=== PATIENT | male | born 1970 | race Caucasian/White ===

== ENCOUNTER 2017-10-31 17:44 | Emergency (ER) | payer BC ==
[~2017-10-31] VITALS: Ht 175.3 cm; Wt 83.9 kg
[2017-10-31] MEDS ORDERED: LACTATED RINGERS 1,000 ML IV ONE (18:37)
[2017-10-31 18:43] LABS: BILIRUBIN,URINE NEGATIVE (NEGATIVE); CLARITY,URINE CLEAR; COLOR,URINE YELLOW; GLUCOSE, URINE (UA) NEGATIVE (NEGATIVE); KETONES,URINE NEGATIVE (NEGATIVE); LEUKOCYTE ESTERASE ,URINE 1+ (NEGATIVE); NITRITE,URINE NEGATIVE (NEGATIVE); PH,URINE 6 (5-9); PROTEIN,URINE 1+ (NEGATIVE); UROBILINOGEN,URINE 1 MG/DL (NORMAL)
[2017-10-31] MEDS ORDERED: NS 250 ML (IVPB) BAG IV ONE (18:45)
[2017-10-31] MEDS ORDERED: PIPERACILLIN/TAZOBACTAM 3.375 GM in NS (IVPB) 100 ML IV ONE (18:45)
[2017-10-31] MEDS ORDERED: IOHEXOL 350 MG/ML 100 ML (OMNIPAQUE 350) VIAL IV ONE (18:45)
[2017-10-31] MEDS ORDERED: CATHETER FLUSH 10 ML SYR IV PRN (18:45)
--- NOTE | 2017-10-31 18:46 | ED GU-Male ---
General Chief Complaint: Abdominal/GI Problems Stated Complaint: POSS HERNIA Source: patient, RN/MD (Dr. Hernandez) Exam Limitations: no limitations History of Present Illness Date Seen by Provider: Oct 31, 2017 Time Seen by Provider: 18:34 Initial Comments The patient presents to the ER by private conveyance with a chief complaint he is proximally 5 days ago on Saturday started feeling some swelling and pain in his left groin and testicle while working on a fence and putting some boards up. He says he felt when he bent over and was screaming and some screws came on acutely and suddenly. Says it felt like somebody pinched his testicle. He says it kind of waxed and waned over the next day or so and then started to swell. He took some Aleve for with his last dose of Aleve being in Saturday or Saturday. He says he then went to the primary care doctor's office Dr. Hernandez today to have it looked at and he says that today he felt like he had a subjective fever. Dr. Hernandez tried multiple times to reduce it and could not get it to reduce a cold and sent the patient to the ER. Excellent spoke with Dr. Lama gave report to this interviewer. Patient reports that his pain right now while he rests and is not manipulated is about a 2 out of 10. It's very painful to touch. He's had no dysuria, discharge, diarrhea, constipation or painful bowel movements. His last bowel movement was earlier today normal. He's had no nausea or vomiting. No cough or shortness of breath. He's had no history of surgeries on his abdomen or elsewhere. No other trauma. Allergies and Home Medications Allergies Coded Allergies: Sulfa (Sulfonamide Antibiotics) (Verified Allergy, Intermediate, 10/31/17) Patient Home Medication List Home Medication List Reviewed: Yes Review of Systems Constitutional: chills; No diaphoresis; fever; No malaise EENTM: No ear discharge, No ear pain Respiratory: No cough, No phlegm, No short of breath Cardiovascular: No chest pain, No edema Gastrointestinal: No abdominal pain, No constipation, No diarrhea, No nausea Genitourinary: denies burning, denies discharge, denies dysuria; pain (left scrotum mass) Musculoskeletal: No back pain, No joint pain Skin: No pruritus, No rash Past Ufianvy-Kvoaem-Jwebhh Hx Patient Social History Alcohol Use: Denies Use Recreational Drug Use: No Smoking Status: Never a Smoker Past Medical History Reproductive Disorders: No Sexually Transmitted Disease: No HIV/AIDS: No Adverse Reaction/Blood Tranf: No Family Medical History No Pertinent Family Hx Physical Exam Vital Signs Vital Signs - First Documented 10/31/17 18:22 Temp 99.3 Pulse 111 Resp 20 B/P (MAP) 155/88 (110) Pulse Ox 99 O2 Delivery Room Air Capillary Refill : General Appearance: WD/WN, mild distress HEENT: PERRL/EOMI, pharynx normal Neck: non-tender, normal inspection Cardiovascular: normal peripheral pulses, regular rate, rhythm Respiratory: no respiratory distress, no accessory muscle use Gastrointestinal: normal bowel sounds, non tender, soft Male: other (left nonreducible large firm scrotal mass that is very tender to manipulation.) Back: normal inspection, no vertebral tenderness Extremities: normal inspection, no pedal edema, normal capillary refill 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: alert, oriented x 3 Focused Exam Lactate Level 10/31/17 18:45: Lactic Acid Level 1.51 Lactic Acid Level Laboratory Tests Test 10/31/17 18:45 Lactic Acid Level 1.51 MMOL/L (0.50-2.00) Progress/Results/Core Measures Suspected Sepsis SIRS Temperature: Pulse: Respiratory Rate: Laboratory Tests 10/31/17 18:45: White Blood Count 8.5 Blood Pressure / Mean: 10/31/17 18:45: Lactic Acid Level 1.51 Laboratory Tests 10/31/17 18:45: Creatinine 0.91, INR Comment 1.0, Platelet Count 217, Total Bilirubin 1.4H Results/Orders Lab Results Laboratory Tests Test 10/31/17 18:35 10/31/17 18:45 Range/Units Urine Color YELLOW Urine Clarity CLEAR Urine pH 6 5-9 Urine Specific [place] 1.025 H 1.016-1.022 Urine Protein 1+ H NEGATIVE Urine Glucose (UA) NEGATIVE NEGATIVE Urine Ketones NEGATIVE NEGATIVE Urine Nitrite NEGATIVE NEGATIVE Urine Bilirubin NEGATIVE NEGATIVE Urine Urobilinogen 1 NORMAL MG/DL Urine Leukocyte Esterase 1+ H NEGATIVE Urine RBC (Auto) 2+ H NEGATIVE Urine RBC 2-5 H /HPF Urine WBC 0-2 /HPF Urine Crystals NONE /LPF Urine Bacteria TRACE /HPF Urine Casts NONE /LPF Urine Mucus LARGE H /LPF Urine Culture Indicated NO White Blood Count 8.5 4.3-11.0 10^3/uL Red Blood Count 5.01 4.35-5.85 10^6/uL Hemoglobin 14.9 13.3-17.7 G/DL Hematocrit 41 40-54 % Mean Corpuscular Volume 82 80-99 FL Mean Corpuscular Hemoglobin 30 25-34 PG Mean Corpuscular Hemoglobin Concent 36 32-36 G/DL Red Cell Distribution Width 13.9 10.0-14.5 % Platelet Count 217 130-400 10^3/uL Mean Platelet Volume 9.6 7.4-10.4 FL Neutrophils (%) (Auto) 75 42-75 % Lymphocytes (%) (Auto) 13 12-44 % Monocytes (%) (Auto) 11 0-12 % Eosinophils (%) (Auto) 1 0-10 % Basophils (%) (Auto) 0 0-10 % Neutrophils # (Auto) 6.4 1.8-7.8 X 10^3 Lymphocytes # (Auto) 1.1 1.0-4.0 X 10^3 Monocytes # (Auto) 0.9 0.0-1.0 X 10^3 Eosinophils # (Auto) 0.1 0.0-0.3 10^3/uL Basophils # (Auto) 0.0 0.0-0.1 10^3/uL Prothrombin Time 13.3 12.2-14.7 SEC INR Comment 1.0 0.8-1.4 Activated Partial Thromboplast Time 32 24-35 SEC Sodium Level 138 135-145 MMOL/L Potassium Level 3.5 L 3.6-5.0 MMOL/L Chloride Level 102 98-107 MMOL/L Carbon Dioxide Level 19 L 21-32 MMOL/L Anion Gap 17 H 5-14 MMOL/L Blood Urea Nitrogen 11 7-18 MG/DL Creatinine 0.91 0.60-1.30 MG/DL Estimat Glomerular Filtration Rate > 60 BUN/Creatinine Ratio 12 Glucose Level 110 H 70-105 MG/DL Lactic Acid Level 1.51 0.50-2.00 MMOL/L Calcium Level 9.5 8.5-10.1 MG/DL Total Bilirubin 1.4 H 0.1-1.0 MG/DL Aspartate Amino Transf (AST/SGOT) 24 5-34 U/L Alanine Aminotransferase (ALT/SGPT) 36 0-55 U/L Alkaline Phosphatase 96 40-136 U/L Total Protein 7.5 6.4-8.2 GM/DL Albumin 5.0 H 3.2-4.5 GM/DL My Orders Orders - RAHUL RADFORD Saline Lock/Iv-Start (10/31/17 18:37) Cbc With Automated Diff (10/31/17 18:37) Comprehensive Metabolic Panel (10/31/17 18:37) Lactic Acid Analyzer (10/31/17 18:37) Blood Culture (10/31/17 18:37) Ua Culture If Indicated (10/31/17 18:37) Protime With Inr (10/31/17 18:37) Partial Thromboplastin Time (10/31/17 18:37) Chest 1 View, Ap/Pa Only (10/31/17 18:37) O2 (10/31/17 18:37) Saline Lock/Iv-Start (10/31/17 18:37) Saline Lock/Iv-Start (10/31/17 18:37) Piperacillin/Tazobactam (Zosyn Vial) (10/31/17 18:45) Vital Signs Adult Sepsis Patie Q15M (10/31/17 18:37) Remove Rings In Anticipation O (10/31/17 18:37) Lactated Ringers (Lr 1000 Ml Iv Solution (10/31/17 18:37) Us Scrotum (Testicle) [id number] (10/31/17 18:39) Iohexol Injection (Omnipaque 350 Mg/Ml 1 (10/31/17 18:45) Sodium Chloride Flush (Catheter Flush Sy (10/31/17 18:45) Ns (Ivpb) (Sodium Chloride 0.9%) (10/31/17 18:45) Pharmacy Communication (Pharmacy Communi (10/31/17 18:43) Ceftriaxone Injection (Rocephin Injectio (10/31/17 19:45) Vital Signs/I&O 10/31/17 18:22 Temp 99.3 Pulse 111 Resp 20 B/P (MAP) 155/88 (110) Pulse Ox 99 O2 Delivery Room Air Capillary Refill : Progress Note : Time: 18:44 Progress Note His temperature is 99.3. His heart rate is 111 on arrival. His unreducible left scrotal mass is consistent with possible incarcerated bowel in the hernia versus orchitis versus much less likely tumor given its abrupt onset and painfulness. We'll obtain ultrasound of the mass which will show us what likely is in origin as well as whether there is a good blood supply if it is incarcerated bowel. If it was a testicular torsion to 5 days later it would be a low likelihood for salvaging it. Diagnostic Imaging Diagonstic Imaging: Ultrasound Plain Films/CT/US/NM/MRI: other (scrotum) Reviewed: Reviewed by Me Consults Consults : Consulting Physician: JAKE DODGE DO Consults Notes After examination Dr. Dodge does not feel this is consistent with hernia. Ultrasound shows a cystic mass with possible symptoms and lobulation off the epididymis. He discussed the case with urology, Dr. Michelle who says the patient can go home with a large dose of Rocephin and then some broad-spectrum antibiotics. He recommends NSAIDs ice Tylenol rest. He wants the patient in his clinic Saturday and they have set up an appointment and given this information to the patient. Lab results were reviewed and unremarkable. There is a trace amount of microscopic hematuria but no bacteria or white blood cells. Departure Impression Primary Impression: Scrotal mass Disposition: HOME, SELF-CARE Condition: Improved Departure-Patient Inst. Decision time for Depature: 19:39 Referrals: DAVIN HERNANDEZ DO (PCP) Primary Care Physician Patient Instructions: Hydrocele/Varicocele (DC) Add. Discharge Instructions: Urology recommends you go home and get some rest. No lifting or strenuous activity. Use ice for pain as well as Tylenol 1000 g every 8 hours and ibuprofen 800 mg every 8 hours. If you prefer Aleve instead of ibuprofen you can use 2 tablets twice a day. If you have breakthrough pain gets unbearable you can take one to 2 tablets of the hydrocodone every 6 hours as needed. Hydrocodone will cause constipation and drowsiness. You can use Colace or MiraLAX to combat constipation. Keep your follow-up appointment on Saturday with Dr. Michelle urology. 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 All discharge instructions reviewed with patient and/or family. Voiced understanding. Scripts Ondansetron (Ondansetron Odt) 4 Mg Tab.rapdis 4 MG PO Q6H PRN for NAUSEA/VOMITING, #8 TAB 0 Refills Prov: RAHUL RADFORD 10/31/17 Hydrocodone Bit/Acetaminophen (Hydrocodone/Acetaminophen 5/325mg Tablet) 1 Tab Tab 1-2 EACH PO Q6H PRN for BREAKTHROUGH PAIN, #10 TAB 0 Refills Prov: RAHUL RADFORD 10/31/17 Doxycycline Monohydrate (Doxycycline Monohydrate) 100 Mg Capsule 100 MG PO BID for 10 Days, #20 CAP 0 Refills Prov: RAHUL RADFORD 10/31/17 Work/School Note: Work Release Form Date Seen in the Emergency Department: Oct 31, 2017 Return to Work: Nov 05, 2017 Restrictions: Need Release from Doctor Copy Copies To 1: DAVIN HERNANDEZ TITUS J Oct 31, 2017 18:46
[2017-10-31 18:52] LABS: BACTERIA,URINE TRACE /HPF; WBC,URINE 0-2 /HPF
[2017-10-31 19:02] LABS: BASOPHILS % (AUTO) 0 % (0-10); EOSINOPHILS # (AUTO) 0.1 10^3/uL (0.0-0.3); EOSINOPHILS % (AUTO) 1 % (0-10); HEMATOCRIT 41 % (40-54); HEMOGLOBIN 14.9 G/DL (13.3-17.7); LYMPHOCYTES # (AUTO) 1.1 X 10^3 (1.0-4.0); LYMPHOCYTES % (AUTO) 13 % (12-44); MEAN CORPUSCULAR HEMOGLOBIN 30 PG (25-34); MEAN CORPUSCULAR HGB CONC 36 G/DL (32-36); MEAN CORPUSCULAR VOLUME 82 FL (80-99); MEAN PLATELET VOLUME 9.6 FL (7.4-10.4); MONOCYTES # (AUTO) 0.9 X 10^3 (0.0-1.0); MONOCYTES % (AUTO) 11 % (0-12); NEUTROPHILS # (AUTO) 6.4 X 10^3 (1.8-7.8); NEUTROPHILS % (AUTO) 75 % (42-75); PLATELET COUNT 217 10^3/uL (130-400); RED BLOOD COUNT 5.01 10^6/uL (4.35-5.85); RED CELL DISTRIBUTION WIDTH 13.9 % (10.0-14.5); WHITE BLOOD COUNT 8.5 10^3/uL (4.3-11.0)
[2017-10-31 19:23] LABS: ALANINE AMINOTRANSFERASE 36 U/L (0-55); ALKALINE PHOSPHATASE 96 U/L (40-136); BILIRUBIN,TOTAL 1.4 MG/DL (0.1-1.0); BUN/CREATININE RATIO 12; CALCIUM 9.5 MG/DL (8.5-10.1); CARBON DIOXIDE 19 MMOL/L (21-32); CHLORIDE 102 MMOL/L (98-107); CREATININE SERUM 0.91 MG/DL (0.60-1.30); GFR ESTIMATED > 60; GLUCOSE 110 MG/DL (70-105); POTASSIUM 3.5 MMOL/L (3.6-5.0); PROTHROMBIN TIME PATIENT 13.3 SEC (12.2-14.7); SODIUM 138 MMOL/L (135-145); TOTAL PROTEIN 7.5 GM/DL (6.4-8.2)
--- NOTE | 2017-10-31 19:40 | Diagnostic Imaging Report ---
EXAMINATION: PA chest. INDICATION: Scrotal swelling. COMPARISON: Prior study from 02/13/2013. FINDINGS: The lungs demonstrate no focal pulmonary infiltrate or consolidation. There is no effusion. There is no pneumothorax. Heart size and mediastinal contours appear appropriate. Mediastinum appears without evidence of mediastinal widening. There is no acute osseous abnormality. IMPRESSION: No radiographic evidence of an acute cardiopulmonary process. Dictated by: Dictated on workstation # [id number]
[2017-10-31] MEDS ORDERED: cefTRIAXone INJECTION 1,000 MG in NS (IVPB) 50 ML IV ONE (19:45)
--- NOTE | 2017-10-31 19:46 | Diagnostic Imaging Report ---
INDICATION: Left-sided scrotal swelling and redness. FINDINGS: The sonographic appearance of the testicles themselves appears appropriate with no evidence of an intratesticular abnormality. The testicles are normal in size. There is maintenance of appropriate Doppler flow to both testicles. On the right, there is no hydrocele or varicocele, and the epididymis is unremarkable. On the left, there is a large septated hydrocele. There also is a very large cystic lesion demonstrated within the epididymis, which measures up to 4.8 x 2.6 x 2.7 cm. There is no abnormal soft tissue nodularity associated with the wall of this apparent large epididymal cyst. There is, however, some slight increased vascularity of the epididymis. Sequela related to epididymitis is a consideration. IMPRESSION: 1. Enlarged left epididymis with a large simple appearing epididymal head cyst. The epididymal soft tissue itself does, however, demonstrate a suggestion of some increased vascularity, and this may reflect sequela of epididymitis. There is also a large septated left-sided hydrocele. 2. There is no right-sided hydrocele. 3. The sonographic appearance of the testicles themselves is appropriate with no intratesticular mass or abnormality. Both testicles demonstrate normal Doppler flow. Dictated by: Dictated on workstation # [id number]
[2017-10-31] MEDS ORDERED: ONDA4TAB11 PO (19:55)
[2017-10-31] MEDS ORDERED: DOXY100C42 PO (19:55)
[2017-10-31] MEDS ORDERED: ACHD5005 PO (19:55)
--- NOTE | 2017-10-31 20:04 | Consultation ---
History of Present Illness History of Present Illness Patient Consulted On(sarai/time) 10/31/17 19:59 Date Seen by Provider: Oct 31, 2017 Time Seen by Provider: 18:49 History of Present Illness Surgery asked to consult regarding right inguinal pain, testicular pain r/o hernia. HPI per ED: The patient presents to the ER by private conveyance with a chief complaint approximately 5 days ago on Saturday started feeling some swelling and pain in his left groin and testicle while working on a fence and putting some boards up. He says he felt when he bent over and was screaming and some screws came on acutely and suddenly. Says it felt like somebody pinched his testicle. He says it kind of waxed and waned over the next day or so and then started to swell. He took some Aleve for with his last dose of Aleve being in Saturday or Saturday. He says he then went to the primary care doctor's office Dr. Hernandez today to have it looked at and he says that today he felt like he had a subjective fever. Dr. Hernandez tried multiple times to reduce it and could not get it to reduce a cold and sent the patient to the ER. Excellent spoke with Dr. Lama gave report to this interviewer. Patient reports that his pain right now while he rests and is not manipulated is about a 2 out of 10. It' s very painful to touch. He's had no dysuria, discharge, diarrhea, constipation or painful bowel movements. His last bowel movement was earlier today normal. He 's had no nausea or vomiting. No cough or shortness of breath. He's had no history of surgeries on his abdomen or elsewhere. No other trauma. When l spoke to pt he denied abdominal distention, nausea or vomiting. Stated still having normal BM's, passing flatus and urinating without difficulty. He denies any trauma to the testicle and does not think he has ever had a bulge in this area before. At its worst pain was at least 8 out of 10 and radiated throughout the testicle. Allergies and Home Medications Allergies Coded Allergies: Sulfa (Sulfonamide Antibiotics) (Verified Allergy, Intermediate, 10/31/17) Home Medications Doxycycline Monohydrate 100 Mg Capsule, 100 MG PO BID Prescribed by: RAHUL RADFORD on 6/28/18 1955 Hydrocodone Bit/Acetaminophen 1 Tab Tab, 1-2 EACH PO Q6H PRN for BREAKTHROUGH PAIN Prescribed by: RAHUL RADFORD on 10/31/171954 Ondansetron 4 Mg Tab.rapdis, 4 MG PO Q6H PRN for NAUSEA/VOMITING Prescribed by: RAHUL RADFORD on 10/31/171954 Patient Home Medication List Home Medication List Reviewed: Yes Past Oetraxl-Aemeta-Nwpkeb Hx Patient Social History Alcohol Use: Denies Use Recreational Drug Use: No Smoking Status: Never a Smoker Recent Foreign Travel: No Contact w/Someone Who Travel: No Recent Infectious Disease Expo: No Recent Hopitalizations: No Seasonal Allergies Seasonal Allergies: Yes Surgeries History of Surgeries: No Respiratory History of Respiratory Disorde: No Cardiovascular History of Cardiac Disorders: No Neurological History of Neurological Disord: No Reproductive System Hx Reproductive Disorders: No Sexually Transmitted Disease: No HIV/AIDS: No Genitourinary History of Genitourinary Disor: No Gastrointestinal History of Gastrointestinal Di: No Musculoskeletal History of Musculoskeletal Dis: No Endocrine History of Endocrine Disorders: No HEENT History of HEENT Disorders: No Cancer History of Cancer: No Psychosocial History of Psychiatric Problem: No Integumentary History of Skin or Integumenta: No Blood Transfusions History of Blood Disorders: No Adverse Reaction to a Blood Tr: No Family Medical History Significant Family History: No Pertinent Family Hx, Hypertension (father) Review of Systems-General Constitutional: No chills, No diaphoresis; weakness; No weight gain EENTM: No hearing loss, No blurred vision, No double vision, No mouth pain, No mouth swelling, No epistaxis, No throat pain, No throat swelling Respiratory: No cough, No dyspnea on exertion, No hemoptysis, No short of breath Cardiovascular: No chest pain, No edema, No Hx of Intervention Gastrointestinal: No abdominal pain, No jaundice, No melena Genitourinary: other (swelling, redness and tender left testicle) Musculoskeletal: No back pain, No joint pain, No joint swelling Skin: No change in color, No change in hair/nails Psychiatric/Neurological: Denies Anxiety, Denies Depressed, Denies Seizure, Denies Tremors Other pt denies any abnormal bruising or bleeding, no heat or cold intolerance Physical Exam-General Problems Physical Exam Vital Signs Vital Signs - First Documented 10/31/17 18:22 Temp 99.3 Pulse 111 Resp 20 B/P (MAP) 155/88 (110) Pulse Ox 99 O2 Delivery Room Air Capillary Refill : Less Than 3 Seconds General Appearance: WD/WN, mild distress Eyes: Bilateral Eye PERRL, Bilateral Eye EOMI HEENT: pharynx normal; No scleral icterus (R), No scleral icterus (L), No pale conjunctivae (R), No pale conjunctivae (L) Neck: non-tender, full range of motion, supple, normal inspection Respiratory: chest non-tender, lungs clear, normal breath sounds, no respiratory distress, no accessory muscle use Cardiovascular: regular rate, rhythm, no edema, no gallop, no JVD, no murmur Gastrointestinal: normal bowel sounds, non tender, soft, no organomegaly, no pulsatile mass; No hernia (no inguinal hernia palpated) Genital/Rectal: normal genital exam (normal circumcised penis), other (left testicle is enlarged, erythematous, warm to the touch, very tender to touch) Back: no CVA tenderness, no vertebral tenderness Extremities: normal range of motion, non-tender, normal inspection, no pedal edema, no calf tenderness 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: 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, no motor/sensory deficits, alert, normal mood/affect, oriented x 3 Skin: normal color, warm/dry Lymphatic: no adenopathy (neck, axilla or groin) Data Review Labs Laboratory Tests 10/31/17 18:35: Urine Color YELLOW, Urine Clarity CLEAR, Urine pH 6, Urine Specific Blue 1.025H, Urine Protein 1+H, Urine Glucose (UA) NEGATIVE, Urine Ketones NEGATIVE, Urine Nitrite NEGATIVE, Urine Bilirubin NEGATIVE, Urine Urobilinogen 1, Urine Leukocyte Esterase 1+H, Urine RBC (Auto) 2+H, Urine RBC 2-5H, Urine WBC 0-2, Urine Crystals NONE, Urine Bacteria TRACE, Urine Casts NONE, Urine Mucus LARGEH , Urine Culture Indicated NO 10/31/17 18:45: White Blood Count 8.5, Red Blood Count 5.01, Hemoglobin 14.9, Hematocrit 41, Mean Corpuscular Volume 82, Mean Corpuscular Hemoglobin 30, Mean Corpuscular Hemoglobin Concent 36, Red Cell Distribution Width 13.9, Platelet Count 217, Mean Platelet Volume 9.6, Neutrophils (%) (Auto) 75, Lymphocytes (%) (Auto) 13, Monocytes (%) (Auto) 11, Eosinophils (%) (Auto) 1, Basophils (%) (Auto) 0, Neutrophils # (Auto) 6.4, Lymphocytes # (Auto) 1.1, Monocytes # (Auto) 0.9, Eosinophils # (Auto) 0.1, Basophils # (Auto) 0.0, Prothrombin Time 13.3, INR Comment 1.0, Activated Partial Thromboplast Time 32, Sodium Level 138, Potassium Level 3.5L, Chloride Level 102, Carbon Dioxide Level 19L, Anion Gap 17H, Blood Urea Nitrogen 11, Creatinine 0.91, Estimat Glomerular Filtration Rate > 60, BUN/Creatinine Ratio 12, Glucose Level 110H, Lactic Acid Level 1.51, Calcium Level 9.5, Total Bilirubin 1.4H, Aspartate Amino Transf (AST/SGOT) 24, Alanine Aminotransferase (ALT/SGPT) 36, Alkaline Phosphatase 96, Total Protein 7.5, Albumin 5.0H Assessment/Plan Assessment/Plan Assessment/Plan Hydrocele vs Hematocele ??Epidydimal cyst Scrotal pain and inflammation I was in the US room while it was being performed, good blood flow to both testicles; around the left was fluid with possible septations and what looked like a possible epidydimal cyst with very thickened peel. I spoke with Urology and Primary care physician. The plan is to get a shot of Rocephin now, will send home on oral Doxycycline, Motrin 600-800mg TID, scrotal elevation, ice to area as needed and rest (pt to only get up to go to the bathroom). Pt has appt with Urologist on Saturday 1pm. Come back to the ER if it gets worse. JAKE DODGE DO Oct 31, 2017 20:04
[2017-10-31 20:57] VITALS: BP 155/88
== END 2017-10-31 20:57 | disposition home or self-care (01) ==
LOC: EDUNIT# 17:44 → ER 17:45
DX: N50.3 Cyst of epididymis (principal); Z88.2 Allergy status to sulfonamides
CPT/HCPCS: 36415; 71045; 76870; 80053; 81000; 83605; 85025; 85610; 85730; 87040; 96361; 96365

== ENCOUNTER 2017-11-10 08:47 | Outpatient (RCR) | payer BC ==
[2017-11-04 14:46] VITALS: BP 122/77
[2017-11-05 08:50] VITALS: BP 129/83
[2017-11-06 08:50] VITALS: BP 122/82
[2017-11-06 09:54] VITALS: BP 122/82
[2017-11-07 08:47] VITALS: BP 121/78
[2017-11-08 09:00] VITALS: BP 125/87
[2017-11-09 09:39] VITALS: BP 124/82
[~2017-11-10] VITALS: Ht 175.3 cm; Wt 83.9 kg
[~2017-11-10 08:47] MED LIST: ACHD5005 PO; DOXY100C42 PO; ONDA4TAB11 PO
[2017-11-10 09:27] VITALS: BP 117/82
== END 2017-12-03 | disposition home or self-care (01) ==
LOC: SDC 08:47
PROVIDERS: ATTEND Urology
DX: N45.1 Epididymitis (principal)
CPT/HCPCS: 96365